=== PATIENT | female | born 1950 | race Caucasian/White ===

== ENCOUNTER → 2018-08-11 18:01 | Outpatient (REF) | payer OTHER, SELFPAY ==
[2018-08-11 19:32] LABS: Free T3, Triiodothyronine Free 2.51 pg/mL (2.77-5.27); Free T4, Direct Thyroxine 1.05 ng/dL (0.78-2.19)
[2018-08-11 19:46] LABS: Thyroid Stimulating Hormone 2.03 uIU/mL (0.47-4.68)
== END ==
LOC: LAB 18:01
PROVIDERS: Family Provider Family Medicine; PCP Family Medicine; Visit Provider Physician Assistant Medical
DX: E03.9 Hypothyroidism, unspecified (principal)
CPT/HCPCS: 36415; 84439; 84443; 84481